=== PATIENT | female | born 1950 | race Caucasian/White ===

== ENCOUNTER 2016-03-28 06:39 | Day surgery (SDC) | payer BC ==
--- NOTE | 2016-03-27 14:59 | HP ---
DATE OF CLINIC: 03/27/2016 ELENA WAGNER : 1950 PLANNED PROCEDURE: Left Knee Manipulation Under Anesthesia After Left Total Knee Arthroplasty DATE OF SURGERY: March 28, 2016 SURGEON: Gabriele Rae M.D. HISTORY OF PRESENT ILLNESS Elena Wagner is a 65 year old female. * Medication list reviewed with patient allergy list reviewed with patient. * Feeling fine. The patient is a 65-year-old female who has known bilateral knee osteoarthritis who is now almost 3 months status post a left total knee replacement. The patient has not progressed in terms of her flexion since week 6 and I saw the patient with juany at the last appointment last week. We spoke about performing a manipulation under anesthesia to see if more flexion could be obtained. She is doing ok in terms of pain control and would like to review with me today about the risks and benefits of this procedure. CURRENT MEDICATION * Citalopram Hydrobromide 10 MG Tablet as directed 0 days, 0 refills * Ibuprofen 800 MG Tablet 1 twice a day, 30 days, 1 refills * TraMADol HCl 50 MG Tablet three times a day prn post operative pain for knee ROM exercises, 10 days, 0 refills PAST MEDICAL/SURGICAL HISTORY Reported: Medical: Depression and Hepatitis B. Surgical / Procedural: Knee replacement Left performed by Dr. Gabriele Rae at the [facility] on 01/01/2016, Cholecystectomy, Hysterectomy, and Carpal Tunnel Surgery. Cervical cancer. ACTIVE PROBLEMS * Presence of left artificial knee joint SOCIAL HISTORY Behavioral: Never smoked. Smoking status: Never smoker. 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 ALLERGIES * Iodides Reaction: Skin Rashes/Hives * Latex Reaction: Skin Rashes/Hives FAMILY HISTORY 1 children living REVIEW OF SYSTEMS Systemic: No fever and no recent weight change. Cardiovascular: No chest pain or discomfort and no palpitations. Pulmonary: No cough and no wheezing. Gastrointestinal: No nausea, no vomiting, no abdominal pain, and no diarrhea. Hematologic: No easy bleeding (no blood clots). Neurological: No motor disturbances and no sensory disturbances. Skin: No skin lesions and no rash. PHYSICAL FINDINGS * Vitals taken 03/27/2016 08:33 am BP-Sitting R 154/91 mmHg 100 - 120/56 - 80 BP Cuff Size Regular Pulse Rate-Sitting 93 bpm 50 - 100 Temp-Oral 98 F 96 - 101 Height 59.5 in 59 - 68 Weight 211 lbs 96 - 178 Body Mass Index 41.9 kg/m2 Body Surface Area 1.90 m2 Pain Level 4 General Appearance: * Well developed. * In no acute distress. Eyes: General/bilateral: Extraocular Movements: * Normal. Lungs: * Clear to auscultation. * No wheezing was heard. * No rales/crackles were heard. Cardiovascular: Heart Rate and Rhythm: * Heart rate was normal. * Heart rhythm regular. Abdomen: Palpation: * Abdominal non-tender. Neurological: * Oriented to time, place, and person. Motor: * Dominant Hand = Right Hand. The patient is walking on the left side without any assistive devices. PHYSICAL FINDINGS RIGHT EXTREMITY Knee General Appearance: No signs of bruising, rashes or any gross abnormality appreciated. The patient walks with a slight limp due left knee pain. The patient is tender to touch on her medial joint line on the right knee Neurologic: Gross sensation to light touch was present in the distribution of DP/SP nerves Vascular: 2+ PT pulse, capillary refill less then 2 seconds is present, some varicose veins Motor: 5 out of 5 strength EHL, TA, GA, peroneals Range of Motion AROM: 0-120 degrees PROM: 0-125 degrees Focused Exam Findings: Patella Pateller tilt: slightly lateral but patella not tender for the patient Knee Joint Medial joint line: TENDER to touch Lateral joint line: TENDER to tender Squat test with hyperflexion: Pain located medially Stable to varus and valgus stress at 0 and 30 degrees Negative Piter's test of pain or snapping PHYSICAL FINDINGS LEFT EXTREMITY Knee General Appearance: The patient has mild swelling and her left knee midline incision is well-healed. She is doing well in terms of knee extension and has tightness with knee flexion. Neurologic: Gross sensation to light touch was present in the distribution of DP/SP nerves Vascular: 2+ PT pulse Motor: 5 out of 5 strength EHL, TA, GA, peroneals Range of Motion AROM: 0-90 degrees PROM: 0-95 degrees Focused Exam Findings: Patella Pateller tilt: neutral Patella non tender to touch IMAGING 01.12.2016--CXR: No acute cardiopulmonary problems are appreciated. Left knee x-rays, 2 views, from 02/01/16 are again reviewed with the patient and show anatomic position of the TKA components with patella button. I showed the patient her postoperative x-rays demonstrating a cemented a left total knee arthroplasty. ASSESSMENT Gabrieel Rae MD made the following assessments * Osteoarthritis of knee -right and left, medial compartments moderate to severe and mild to moderate patellofemoral compartments s/p left TKA 3 months ago S/P Left TKA with slow progression of motion. PLAN * Presence of left artificial knee joint Physical Therapy: [facility] Gabriele Rae MD ordered the following therapy * Manipulation of the knee requiring anesthesia after TKA -Left THERAPY * Patient not eligible for fall risk assessment. SURGICAL CONSENT We have discussed surgical options including left knee manipulation under anesthesias after TKA and non-operative management. The patient and I spent some time reviewing her options. She is convinced that she would like to move forward with left knee manipulation. We spoke about the procedure and about the risks. I told her there is a risk of fracture with the manipulation. This is rare but it can occur. I then spoke about how I would perform the procedure and the post-op rehab plan. I spoke to her about the risk of knee stiffness, persistent knee pain, need for knee revision in the future, infection, DVT, stroke, heart attack, anesthesia risks and even . We spoke about her concerns and then she signed the consent form. The patient was counseled in detail regarding the diagnosis, treatment options available, prognosis of each treatment option and the potential risks and complications. The risks of surgery include, but are not limited to, anesthetic , neurovascular complications, pulmonary embolism, deep vein thrombosis, wound dehiscence, failure of any or all of the discussed procedures, infection of the joint or surrounding soft tissue, need for revision surgery, chronic pain, limitations in activities of daily living, inability to return to work, and loss of normal range of motion or functional use of the extremity. There is the possibility of failure over time that may require additional operative or non-operative treatment. The patient acknowledged that there are a number of perioperative risks not mentioned here and would still like to proceed. The patient is aware of and understands these risks, and wishes to proceed with the proposed surgical procedure and other procedures as indicated at the time of surgery. The preoperative instructions were reviewed with the patient and all questions were answered. CARE TEAM Quita Beard MD Family Practice BLP/sg
[~2016-03-28 06:39] MED LIST: IV START KIT ONE; LACTATED RINGERS 1,000 ML ONE
[2016-03-28] MEDS ORDERED: CEFAZOLIN SODIUM 2 GRAM PREMIX 100 ML IV PRN (06:45)
[2016-03-28] MEDS ORDERED: CEFAZOLIN SODIUM 2 GRAM PREMIX 100 ML IV ONE (07:33)
[2016-03-28] MEDS ORDERED: FENTANYL 100 MCG/2 ML VIAL ONE (07:50)
[2016-03-28] MEDS ORDERED: MIDAZOLAM HCL 5 MG/5 ML VIAL ONE ×2 (07:50→08:27)
[2016-03-28] MEDS ORDERED: ROPIVACAINE 0.5% 30 ML VIAL ONE (07:55)
[2016-03-28] MEDS ORDERED: NERVE BLOCK PROCEDURAL TRAY 1 EACH ONE (07:55)
[2016-03-28] MEDS ORDERED: ONDANSETRON 4 MG/2ML 2 ML VIAL IV PRN ×2 (08:38→09:35)
[2016-03-28] MEDS ORDERED: PROMETHAZINE HCL 25 MG/ML VIAL IM PRN (08:38)
[2016-03-28] MEDS ORDERED: ATROPINE SULFATE 0.4 MG/1 ML VIAL IV PRN (08:38)
[2016-03-28] MEDS ORDERED: MEPERIDINE 25 MG/ML SYRINGE IV PRN (08:38)
[2016-03-28] MEDS ORDERED: MORPHINE SULFATE 4 MG/ML SYRINGE IV PRN ×2 (08:38→10:40)
[2016-03-28] MEDS ORDERED: NALOXONE HCL 0.4 MG/ML VIAL IV PRN (08:38)
[2016-03-28] MEDS ORDERED: LABETALOL HCL 5 MG/ML 20ML VIAL IV PRN (08:38)
[2016-03-28] MEDS ORDERED: LACTATED RINGERS 1,000 ML IV SCH (08:45)
[2016-03-28] MEDS ORDERED: FAMOTIDINE 10 MG/ML 2ML VIAL ONE (08:48)
[2016-03-28] MEDS ORDERED: METOCLOPRAMIDE HCL 5 MG/ML 2ML VIAL ONE (08:48)
[2016-03-28] MEDS ORDERED: PROPOFOL 20 ML IV ONE (08:48)
--- NOTE | 2016-03-28 08:53 | PCMBPN ---
Brief Post Op Note: Date of Procedure: 03/28/16 Preoperative Diagnosis: 1. 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 [Same] Procedure: Left TKA manipulation under anesthesia Surgeon: Gabriele Rae MD Assist: None Anesthesia: IV sedation and a left femoral nerve block for post-op pain control Findings: pt had a gentle manipulation and was able to improve her flexion from 95 degrees to 125 degrees of flexion in the OR. Fluoro showed no signs of frx in the O.R. Condition: stable vitals, transferred to pacu Complications: None IV Fluids: 800 mLs of LR Urine Output: 0 mLs Estimated Blood Loss: 800 mLs Tourniquet Time: [N/A] Specimens: [N/A] Implants: None Drains: [N/A] PLAN: WBAT on the RLE. Will start ROM with CPM and PT on the floor. Knee immobilizer when ambulating with femoral nerve block in place. No chemical DVT prophylaxis.
[2016-03-28] MEDS ORDERED: ON-Q PUMP/ROPIVACAINE 0.2% 400 ML in PREMIX BAG 1 EACH NB PRN (08:55)
[2016-03-28] MEDS ORDERED: ON-Q PUMP/ROPIVACAINE 0.2% 450 ML ONE (08:56)
--- NOTE | 2016-03-28 09:10 | RAD ---
EXAMINATION:KNEE LEFT 1 OR 2 VIEWS TECHNIQUE: Fluoroscopic assistance was provided for Dr. Rae. Fluoroscopy time: 8.6 seconds Number of images: 2 FINDINGS: Knee arthroplasty is noted. On the submitted lateral images alignment appears grossly within normal limits. IMPRESSION: Fluoroscopic assistance provided as described above.
[2016-03-28 09:21] VITALS: BMI 40.4
[2016-03-28] MEDS ORDERED: OXYCODONE HCL 5 MG TABLET PO PRN (09:35)
[2016-03-28] MEDS ORDERED: KETOROLAC TROMETHAMINE 30 MG/ML 1 ML VIAL IV PRN (09:35)
[2016-03-28] MEDS ORDERED: MORPHINE SULFATE 2 MG/ML SYRINGE IV PRN (09:35)
[2016-03-28] MEDS ORDERED: CALCIUM CARBONATE 500 MG TAB.CHEW PO PRN (09:35)
[2016-03-28] MEDS ORDERED: TRAMADOL HCL 50 MG TABLET PO PRN (09:35)
[2016-03-28] MEDS ORDERED: PUMP TUBING ONE (10:12)
[2016-03-28] MEDS: LACTATED RINGERS 1,000 ML IV SCH ×2 (10:15→17:31)
--- NOTE | 2016-03-28 10:27 | RAD ---
EXAMINATION: KNEE LEFT 1 OR 2 VIEWS INDICATION:Status post manipulation of left total knee arthroplasty. TECHNIQUE: 2 views of the left knee were obtained. COMPARISON: 03/28/2016 fluoroscopy and prior exam dated 02/01/2016. A left total knee arthroplasty is noted. No hardware fracture or loosening is identified. Alignment is anatomic. The adjacent soft tissues are within normal limits. IMPRESSION:Satisfactory appearance left total knee arthroplasty.
[2016-03-28] MEDS: ACETAMINOPHEN 500 MG TABLET PO SCH ×3 (13:21→20:35)
[2016-03-28] MEDS: ASCORBIC ACID 500 MG TABLET PO SCH ×2 (13:48→20:31)
[2016-03-28] MEDS: MULTIVITAMINS 1 TAB TABLET PO SCH (13:48)
[2016-03-28] MEDS: DOCUSATE SODIUM 100 MG CAPSULE PO SCH ×2 (13:48→20:31)
[2016-03-28] MEDS: ASPIRIN (ENTERIC COATED) 325 MG TABLET.EC PO SCH (13:48)
[2016-03-29] MEDS: LACTATED RINGERS 1,000 ML IV SCH ×2 (03:00→09:45)
[2016-03-29] MEDS: ACETAMINOPHEN 500 MG TABLET PO SCH ×3 (03:06→14:55)
[2016-03-29] MEDS ORDERED: MAGNESIUM HYDROXIDE 30 ML UDCUP PO PRN (08:54)
--- NOTE | 2016-03-29 09:20 | RAD ---
FOOT - LEFT 2 VIEW HISTORY: Third toe injury with pain. COMPARISONS: None. FINDINGS: 2 views of the left foot were performed demonstrating postsurgical changes of the great toe with screw fixation of the distal first metatarsal. There are degenerative changes noted of the first and third metatarsophalangeal joints with joint space loss and subchondral sclerosis. No definitive acute fracture is visualized. The soft tissue structures are appropriate. Large anterior and posterior calcaneal enthesophytes are incidentally seen. IMPRESSION: 1. No definitive acute fracture identified. 2. Prior screw fixation of the distal first metatarsal. 3. Degenerative changes of the first and third metatarsophalangeal joints. 4. Large anterior and posterior calcaneal spurs.
[2016-03-29] MEDS: ASPIRIN (ENTERIC COATED) 325 MG TABLET.EC PO SCH (09:36)
[2016-03-29] MEDS: DOCUSATE SODIUM 100 MG CAPSULE PO SCH (09:36)
[2016-03-29] MEDS: MULTIVITAMINS 1 TAB TABLET PO SCH (09:37)
[2016-03-29] MEDS: ASCORBIC ACID 500 MG TABLET PO SCH (09:37)
--- NOTE | 2016-03-29 10:38 | OP ---
ELENA ORTA : 1950 V [id number] DATE OF PROCEDURE: March 28, 2016 PREOPERATIVE DIAGNOSIS: Left knee arthrofibrosis after a left TKA. POSTOPERATIVE DIAGNOSIS: SAME PROCEDURE: LEFT TOTAL KNEE MANIPULATION UNDER ANESTHESIA SURGEON: Gabriele Rae M.D. FISH MACHINE FEEDER: None ESTIMATED BLOOD LOSS: 800 cc IV FLUIDS: 800 cc of LR URINE OUTPUT: 0 SPECIMENS: None TOURNIQUET TIME: N/A SPECIMENS: N/A ANESTHESIA: IV sedation with a left femoral nerve block for postop pain control. FINDINGS: The patient had a gentle manipulation performed. This was done under fluoro. There were no signs of fracture. The patient's preop ROM was actively 90 degrees to 95 degrees and passively was to degrees of flexion. After the manipulation I could passively flex her knee to 125 degrees of flexion. CONDITION: The patient had stable vital signs and transferred to the PACU. IMPLANTS: None DRAINS: N/A COMPLICATIONS: None PLAN: The patient will be weightbearing as tolerated on the left lower extremity. We will start the CPM in the recovery room working on getting maximum flexion. Because of the femoral nerve block we will have the knee immobilizer for the patient to get up with ambulation. I spoke to PT. She will be on aspirin for DVT prophylaxis and oxycodone for pain control. INDICATIONS: The patient is a 65-year-old female who has had a left total knee arthroplasty performed almost 3 months ago. From week 6 to week 9 the patient has plateaued in terms of her ROM. I pointed this out to the patient that despite PT she has not improved. I talked to her about the risks and benefits of performing a manipulation. I told her that this is not necessarily going to fix all of her flexion issues, but could improve them. I said the main risk for this procedure is the general anesthetic as well as the possibility of fracture, which could occur from this manipulation. After reviewing the risks and benefits of this procedure she opted to proceed. PROCEDURE DESCRIPTION: The patient was seen in the preoperative area where I confirmed that the left side was the correct side, that our plan was manipulation under anesthesia. The patient was then seen by the anesthesia team who placed an IV and talked to her about an IV sedation along with placement of a left femoral nerve block placed under ultrasound guidance. The patient agreed to have a left femoral nerve catheter placed. This was placed without incident. The patient was then brought from the preoperative area to the OR theater where she was transferred to a standard OR bed. At this point a safety belt was placed and SCD's placed on her normal leg. At this point we performed a final timeout confirming that the left side was the correct side, no antibiotics were administered as no incision was planned. Fluoroscopy was available to check that a manipulation went smoothly and we confirmed that we had all the necessary equipment. At this point in time with the final timeout completed we were ready to begin the procedure. I then took the leg and examined it. Under anesthesia the patient could get close to 95 degrees or 100 degrees of flexion with full extension. I gently pressed on the knee gaining close to 125 degrees of flexion. I held the knee in this position for close to 5 minutes. I obtained a C-arm shot confirming that there were no signs of a fracture. I took the knee through a ROM. The knee felt well balanced. At this point the patient was awoken from anesthesia and brought to the recovery room. We will plan on having the patient have a CPM machine, a cooling unit for her knee as well as working with PT later today really working on gaining more flexion. I will see the patient back in f/u on the floor. Postop xrays were obtained confirming no signs of any complication or fracture. I spoke to the patient's family after the procedure. FAITH/crissy CC: [facility]
--- NOTE | 2016-03-29 13:19 | PDOC43 ---
- Subjective Subjective: Reports Pain Tolerable (Patient still has left femoral nerve block in place. Pt stubbed her toe in the bathroom last night and it still hurts), Denies Chest Pain, Denies Shortness of Breath, Denies Nausea, Denies Vomiting, Denies Fever - Objective Vital Signs Temperature 98.2 F 03/29/16 12:02 Pulse Rate 88 03/29/16 12:02 Respiratory Rate 17 03/29/16 12:02 Blood Pressure 131/84 03/29/16 12:02 O2 Saturation by Pulse Oximetry 96 03/29/16 12:02 Oxygen Delivery Method Room Air Oxygen Flow Rate 0 Active Medication Orders Category Date Time Status Acetaminophen [Tylenol] Med 03/28/16 09:35 Active 1,000 mg PO Q6H Ascorbic Acid [Vitamin C] Med 03/28/16 09:35 Active 500 mg PO BID Aspirin (Enteric Coated) [Ecotrin] Med 03/28/16 09:35 Active 325 mg PO DAILY Bisacodyl [Dulcolax] Med 03/31/16 08:54 Active 10 mg MA DAILY PRN Calcium Carbonate [Tums] Med 03/28/16 09:35 Active 1,000 - 2,000 mg PO Q2H PRN Docusate Sodium [Colace] Med 03/28/16 09:35 Active 100 mg PO BID Lactated Ringers 1,000 ml Med 03/28/16 09:35 Active IV 125 mls/hr Magnesium Hydroxide [Milk of Magnesia] Med 03/29/16 08:54 Active 30 ml PO DAILY PRN Morphine Sulfate Med 03/28/16 09:35 Active 2 - 4 mg IV Q4H PRN Morphine Sulfate Med 03/28/16 10:40 Active 2 - 4 mg IV Q4H PRN Multivitamins [One-A-Day] Med 03/28/16 09:35 Active 1 tab PO DAILY Ondansetron 4 mg/2ml Vial [Zofran] Med 03/28/16 09:35 Active 4 - 6 mg IV Q6H PRN Oxycodone HCl [Roxicodone] Med 03/28/16 09:35 Active 5 - 10 mg PO Q4H PRN Sodium Chloride 0.9% Flush [Normal Saline 10ml Flush] Med 03/28/16 09:35 Active 10 - 50 ml IV PRN PRN Sodium Chloride 0.9% Flush [Normal Saline 10ml Flush] Med 03/28/16 17:00 Active 10 ml IV Q8HR Tramadol HCl [Ultram] Med 03/28/16 09:35 Active 50 mg PO Q6H PRN Intake and Output 03/27/16 03/28/16 03/29/16 23:59 23:59 23:59 Intake Total 1456 300 Output Total 900 1050 Balance 556 -750 General: Afebrile - Left Lower Extremity Incision: Dressing Clean/Dry/Intact Motor: Extensor Hallucis Longus: 5/5, Tibialis Anterior: 5/5, Gastrocnemius: 5/5 , Peroneals: 5/5 Gross Sensation to Light Touch: Present: Deep Peroneal Nerve, Superficial Peroneal Nerve Capillary Refill: < 3 Seconds (PROM from 0 to 115 degrees but painful for the patient) - Disposition POD#1 s/p left TKA MARY KAY Pt will have femoral nerve block removed and will continue working on left knee flexion with the CPM. Possible discharge to home today if cleared by PT.
[2016-03-29 16:15] VITALS: BP 136/74
[2016-03-31] MEDS ORDERED: BISACODYL 10 MG SUP PR PRN (08:54)
== END 2016-03-29 17:25 | disposition home or self-care (01) ==
LOC: SDC 06:39 → MS 09:51 → SDC 03-29 17:25
PROVIDERS: ATTEND Orthopaedic Surgery
PROC: 0SSDXZZ Reposition Left Knee Joint, External Approach (ICD-10-PCS; principal; 2016-03-29)
DX: M24.662 Ankylosis, left knee (principal); M17.0 Bilateral primary osteoarthritis of knee; Z96.652 Presence of left artificial knee joint
CPT/HCPCS: 76000; 73620; 73560 ×2; 94010; 97530; 97161; 27570; A9270 ×15; J3010; J2795 ×3; J2765; J2250 ×2; J7120 ×2; A4306; J0690